=== PATIENT | male | born 1935 | race Caucasian/White ===

== ENCOUNTER 2021-12-07 19:36 | Emergency (ER) | payer MEDICARE, OTHER, SELFPAY ==
[2021-12-07 20:48] VITALS: BP 165/88; PULSE 85; RESP 18; TEMP 36.7; O2SAT 99; BMI 27.1
--- NOTE | 2021-12-07 22:06 | ED.ANIMALBIT ---
HPI - Animal Bite General Chief Complaint: Animal Bite Stated Complaint: ? bit by raccoon ? rabies vaccine Source: patient Mode of arrival: ambulatory Limitations: no limitations History of Present Illness HPI narrative: 86 yold male presents to the ED for animal bite in left leg by a raccoon that occurred last night. Patient states rackalie came up to him and bit him through his pants. patient states he has been bitten by racoon in the past and has recieved rabies vaccines over 5 years ago. Related Data Previous Rx's Medication Instructions Recorded amoxicillin 875 mg-potassium 1 tab PO Q12H 10 days #20 tabs 12/08/21 clavulanate 125 mg tablet Allergies Allergy/AdvReac Type Severity Reaction Status Date / Time From [place] Allergy Unknown UNKNOWN Uncoded 01/22/20 15:06 Review of Systems Review of Systems: racoon bite left leg Yes all other systems are reviewed and are negative [facility] Social History Social History Advance Directives: No Advance Directives Information Provided: No Physical Exam ED Vital Signs: Vital Signs - 24 hr 12/07/21 20:48 Temperature 98.1 F Pulse Rate 85 Respiratory Rate 18 Blood Pressure 165/88 H Pulse Oximetry 99 Oxygen Delivery Method Room Air BMI result Body Mass Index 27.1 Const General: cooperative, healthy appearing, comfortable, no acute distress, well developed, alert, awake and Physically active Orientation/consciousness: patient oriented x3 HENMT Head: Yes normal to inspection, Yes No palpable skull fracture present, Yes normocephalic, Yes atraumatic and No abrasion Eyes General: appearance normal, both eyes and all related structures Neck Neck: Yes normal visual inspection, Yes full ROM, Yes no lymphadenopathy, Yes no meningeal signs, Yes trachea midline, Yes supple, No anterior neck swelling and No tender Chest Chest palpation & inspection: normal inspection of the chest and normal palpation of entire chest wall Resp Effort & Inspection: normal respiratory effort and able to speak in complete sentences Auscultation: clear to auscultation bilaterally Cardio Jugular venous distension: no JVD Heart sounds: S1 normal heart sound present and S2 normal heart sound present GI Inspection: Yes normal to inspection and No abdominal wall ecchymosis Palpation (GI): Soft to palpation, not firm, nontender, no guarding and not rigid General: No CVA tenderness and Yes no CVA tenderness Back/Spine/Pelvis Back: no CVA tenderness, No CVA tenderness and No back tenderness Skin General skin exam: no rashes or lesions noted and elasticity normal Neuro General: patient oriented x3, gait normal, tone normal and no meningeal signs Extrem Other: Left Lower extremity: examined and negative for any break in skin, bite shaikh, redness, swelling, tenderness, or calf pain. Motor, neuro, and vascular exam is intact General: Yes normal to inspection and Yes full ROM Psych Appearance: grossly normal, well kempt and not disheveled Course Course Course Narrative: Due to patient saying he was bitten by raccoon and rabies vaccine over many years ago. patient will have another rabies vaccine shot. Rabies antibiodies only last for one year Reevaluation(s) Reevaluation #1: Rabies vaccine and immunglobin ordered. dischage with augmentin Time: 00:26 MDM - Animal Bite MDM Narrative Medical decision making narrative: racoon bite Discharge Plan Discharge Clinical Impression: Bite by animal Patient Disposition: Home, Self-Care Instructions: Animal Bite (ED) Additional Instructions: Please follow up with Short stay/Rabies clinic at this hospital for your scheduled rabies shots. Call number . Return to the ED immediatley for foaming of the mouth, fever, chills, redness, stiffness, weaknes, seizures, or any other concerning symptoms. You will need antibiotics. Please follow up with PCP. Prescriptions: New amoxicillin-pot clavulanate 875-125 mg tablet 1 tab PO Q12H 10 Days Qty: 20 0RF Print Language: Bengali
[2021-12-07] MEDS: Rabies Immune Globulin/PF 900 UNIT/3 ML VIAL 1714.58 UNIT IM (23:53)
[2021-12-07] MEDS: Rabies Vaccine (PCEC)/PF 1 ML VIAL IM (23:54)
--- NOTE | 2021-12-08 00:07 | PC.NURSE ---
Addendum entered by Kaylie Marino 12/08/21 00:09: pt tolerated well. Original Note: medicated per provider order - rabies vaccine left deltoid, immuno globulin right deltoid, per provider no wound site, ok'd bilateral arm injections.
== END 2021-12-08 00:57 | disposition home or self-care (01) ==
PROVIDERS: Emergency Provider Internal Medicine
DX: S81.852A Open bite, left lower leg, initial encounter (principal); M79.605 Pain in left leg; W55.51XA Bitten by raccoon, initial encounter; Y93.9 Activity, unspecified; Y92.9 Unspecified place or not applicable; Y99.9 Unspecified external cause status; Z29.14 Encounter for prophylactic rabies immune globulin; Z20.3 Contact with and (suspected) exposure to rabies
CPT/HCPCS: 90375; 90471; 90675; 96372; 99282; 99284

== ENCOUNTER 2021-12-10 10:06 | Outpatient (REF) | payer MEDICARE, SELFPAY | END 2021-12-10 10:07 | disposition home or self-care (01) | LOC: HO.MDS 10:06 | PROVIDERS: PCP Internal Medicine; Visit Provider Physician Assistant | DX: Z29.14 Encounter for prophylactic rabies immune globulin (principal); S81.852D Open bite, left lower leg, subsequent encounter; W55.51XD Bitten by raccoon, subsequent encounter; Z20.3 Contact with and (suspected) exposure to rabies | CPT/HCPCS: 90471; 90675 ==

== ENCOUNTER 2021-12-14 14:16 | Outpatient (REF) | payer MEDICARE, SELFPAY | END 2021-12-14 14:17 | disposition home or self-care (01) | LOC: HO.MDS 14:16 | PROVIDERS: Visit Provider Physician Assistant | DX: Z29.14 Encounter for prophylactic rabies immune globulin (principal); S81.852D Open bite, left lower leg, subsequent encounter; W55.51XD Bitten by raccoon, subsequent encounter; Z20.3 Contact with and (suspected) exposure to rabies | CPT/HCPCS: 90471; 90675 ==

== ENCOUNTER 2021-12-21 14:05 | Outpatient (REF) | payer MEDICARE, OTHER, SELFPAY | END 2021-12-21 14:06 | disposition home or self-care (01) | LOC: HO.MDS 14:05 | PROVIDERS: Visit Provider Physician Assistant | DX: Z29.14 Encounter for prophylactic rabies immune globulin (principal); S81.852D Open bite, left lower leg, subsequent encounter; W55.51XD Bitten by raccoon, subsequent encounter; Z20.3 Contact with and (suspected) exposure to rabies | CPT/HCPCS: 90471; 90675 ==